=== PATIENT | female | born 1960 | race Caucasian/White ===

== ENCOUNTER 2020-11-27 23:39 | Emergency (ER) | payer MEDICARE ==
[2020-11-28] MEDS ORDERED: Ketorolac Tromethamine 30 MG/ML VIAL ONE (01:24)
== END 2020-11-28 03:18 | disposition home or self-care (01) ==
LOC: ERS 23:39
DX: M25.562 Pain in left knee (principal); J43.9 Emphysema, unspecified; F17.210 Nicotine dependence, cigarettes, uncomplicated; Z79.899 Other long term (current) drug therapy; M79.605 Pain in left leg
CPT/HCPCS: 96372; J1885